=== PATIENT | male | born 2005 | race Two or more races ===

== ENCOUNTER 2025-02-24 16:14 | Inpatient (IN) | payer OTHER ==
[~2025-02-24] VITALS: Ht 162.6 cm; Wt 65.1 kg
--- NOTE | 2025-02-24 16:42 | ED.PDOC ---
General HPI Comments HPI: This is a 20 year old male presenting to the ED with chief complaint of groin pain. Patient reports that he has been experiencing left sided groin pain between his left scrotum and thigh for the past 3 days. Patient relays that he now feels a lump to the point of pain. Patient states he is sexually active, but has no history of STI's. Patient notes that he currently has an undescended left testicle that has been evaluated before, but no treatment has been performed for it. Patient denies any penile discharge, testicular pain, dysuria, hematuria, flank pain, fever, or chills. Initial Vitals BP: 131/81 HR: 100 RR: 16 O2: 98% Temp: 99.3F Past Medical History: One undescended testicle Past Surgical History: Denies Social History: Denies ETOH, smoking, and drug use. Medications: None Allergies: NKDA HPI: Poor Historian. REVIEW OF SYSTEMS: CONSTITUTIONAL: Denies acute: fever, diaphoresis, chills, generalized weakness. HEAD: Denies acute: headache, photophobia Eyes: Denies acute: Double vision, vision loss, eye pain, eye discharge. EARS: Denies acute: tinnitus, hearing loss, ear discharge, ear pain, THROAT: Denies acute: sore throat, swelling, difficulty swallowing , pain with swallowing, change in voice. NECK: Denies acute: neck pain, neck swelling, stiff neck. HEART: Denies acute : chest pain, palpitations, LUNGS: Denies acute: SOB, wheezing, cough, hemoptysis ABDOMEN: Denies acute: abdominal pain, Nausea, Vomiting, diarrhea, melena , hematemesis, hematochezia SKIN: Denies acute: rash, redness, lesions, itchiness. EXTREMITIES: Denies acute: calf pain, numbness, tingling, weakness, denies pain in extremity. Denies acute: Low back pain. Neuro: Denies acute: focal neurological deficit, motor or sensory focal neurological deficit, tremors, seizure like activity, confusion, dizziness, change in mental status, loss of bowel or bladder function, cauda equina like symptoms. : Denies acute: dysuria, hematuria, flank pain, increase in urinary frequency. PSYCH: Denies acute: hallucination, suicidal ideation, homicidal ideation. PHYSICAL EXAM: General: ----mild----acute distress, awake and alert. Head: normocephalic, atraumatic. Neck: supple, trachea is midline, no swelling. Throat: Normal phonation. Eyes:, no erythema, no purulent discharge, no proptosis, no icterus. Heart: regular rate, regular rhythm, no significant murmur appreciated. Lungs: no apparent respiratory distress, Able to speak in full sentences. No wheezing, no rhonchi, no crackles. No stridors Clear to auscultation bilaterally. Abdomen: non tender to palpation, non distended, soft, no guarding, no rebound, + bowel sounds. Neuro: Awake, Alert, oriented to name, self, situation, follows commands GCS=15. Speech is normal. Skin: no petechia, no purpura, no cyanosis, non-pale, not jaundice. Lower extremities: --no - Pitting edema no deformity, no focal swelling, no calf TTP. Makes eye contact. moves all four extremities. Face: no apparent facial droop. Ambulating in the ED independently. : Scrotum is normal appearance. One testicle present in the scrotal sac. Testicle is nontender to palpation. Patient points specifically to his left groin area where his undescended testicle resides. The area is inflamed and swollen and tender to palpation. Otherwise Normal-appearing external male genitalia, circumcised. ED COURSE: DISCLAIMER: This medical document was created using an electronic medical record system with voice recognition software and computerized dictation system. Although this document has been carefully reviewed, there might still be some phonetic and typographical errors. Occasional wrong-word or "sound-alike" substitutions may have occurred due to the inherent limitations of voice recognition software. These areas are purely typographical due to imperfections of the software programs and do not reflect any compromise in the patient's medical care. Please read the chart carefully and recognize, using context, where these substitutions have occurred. Chief Complaint: Testicle Pain Time Seen by MD: 16:37 Reviewed notes: Medications, Allergies Allergies: Coded Allergies: NO KNOWN ALLERGIES (Unverified , 02/24/25) Information Source: Patient Mode of Arrival: Ambulatory Was a procedure done? Was a procedure done?: No Differential Diagnosis Kidney stone (Female): N/A Penile/Scrotal: Epidiymitis, Foreign Body, Prostatitis, STD, UTI, Phimosis, Hydrocele, Testicular Torsion, Urolithiasis Urinary Problem (Male): Plelonephritis, Urethritis, Other (Neoplasm/abscess) X-Ray, Labs, Meds, VS Vital Signs Date Time Temp Pulse Resp B/P (MAP) Pulse Ox O2 Delivery O2 Flow Rate FiO2 02/24/25 16:15 99.3 100 16 131/81 98 99.3 Lab Test 02/24/25 16:41 02/24/25 16:35 Range/Units White Blood Count 14.5 H 4.4-10.8 10^3/uL Red Blood Count 5.27 4.5-5.90 10^6/uL Hemoglobin 14.7 13.5-17.5 g/dL Hematocrit 42.7 41.0-53.0 % Mean Corpuscular Volume 81.1 80.0-100.0 fL Mean Corpuscular Hemoglobin 27.9 L 28.0-32.0 pg Mean Corpuscular Hemoglobin Concent 34.5 32.0-36.0 g/dL Red Cell Distribution Width 13.5 11.8-14.3 % Platelet Count 244 140-450 10^3/uL Mean Platelet Volume 7.3 6.9-10.8 fL Neutrophils (%) (Auto) 75.2 37.0-80.0 % Lymphocytes (%) (Auto) 15.5 10.0-50.0 % Monocytes (%) (Auto) 8.4 0.0-12.0 % Eosinophils (%) (Auto) 0.7 0.0-7.0 % Basophils (%) (Auto) 0.2 0.0-2.0 % Neutrophils # (Auto) 10.9 H 1.6-8.6 10 ^3/uL Lymphocytes # (Auto) 2.2 0.4-5.4 10 ^3/uL Monocytes # (Auto) 1.2 0-1.3 10 ^3/uL Eosinophils # (Auto) 0.1 0-0.8 10 ^3/uL Basophils # (Auto) 0 0-0.2 10 ^3/uL Nucleated Red Blood Cells 0.0 % Sodium Level 142 136-145 mmol/L Potassium Level 3.6 3.5-5.1 mmol/L Chloride Level 104 98-107 mmol/L Carbon Dioxide Level 27 20-31 mmol/L Anion Gap 11 5-15 Blood Urea Nitrogen 12 9-23 mg/dL Creatinine 0.92 0.700-1.30 mg/dL Glomerular Filtration Rate Calc 122 >90 mL/min BUN/Creatinine Ratio 13.0 10.0-20.0 Serum Glucose 91 74-106 mg/dL Lactic Acid Level 0.9 0.4-2.0 mmol/L Calcium Level 10.1 8.7-10.4 mg/dL Urine Color Yellow Yellow Urine Clarity Clear Clear Urine pH 6.0 5.0-9.0 Urine Specific [place] 1.034 1.001-1.035 Urine Protein Negative Negative Urine Ketones Negative Negative Urine Blood Negative Negative /uL Urine Nitrite Negative Negative Urine Bilirubin Negative Negative Urine Urobilinogen Normal Negative mg/dL Urine Leukocyte Esterase Negative Negative /uL Urine RBC 2 0 - 3 /hpf Urine Microscopic WBC < 1 0-3 /HPF Urine Squamous Epithelial Cells Few <5 /hpf Urine Bacteria None seen None Seen /hpf Urine Glucose Normal Normal mg/dL Chlamydia trachomatis (SALLY) Pending Neisseria gonorrhoeae (SALLY) Pending Current Medications Medications (Trade) Dose Ordered Sig/Franny Route Start Time Stop Time Status Last Admin Ceftriaxone Sodium 50 ml @ 100 mls/hr ONCE ONCE IV 02/24/25 16:45 02/24/25 17:14 DC 02/24/25 16:49 Sodium Chloride 1,000 ml @ 1,000 mls/hr Q1H ONCE IV 02/24/25 17:00 02/24/25 17:59 NV 02/24/25 16:50 [place] [address] Ph: [phone] DIAGNOSTIC IMAGING Diagnostic Imaging Report : [id number] Signed PATIENT: MILES ENGLISH ACCT: [id number] UNIT: [id number] : 2005 LOC: ER ROOM / BED: / AGE / SEX: 20 / M ADM STATUS: REG ER SERVICE 1617 ORDERING PHYSICIAN: NICK TORRES DO PROCEDURE(s): TESUS - TESTICULAR ULTRASOUND REASON: pain ORDER NUMBER(s): [id number], ACCESSION NUMBER(s): [id number] ULTRASOUND OF SCROTUM AND CONTENTS. INDICATION: pain COMPARISON: None TECHNIQUE: Multiple real-time grayscale sonographic and color and duplex Doppler images of the scrotum and its contents were obtained. FINDINGS: RIGHT TESTICLE: Measures 5 X 2.3 X 3.4 cm. RIGHT EPIDIDYMIS MEASURES 11.3 MM LEFT TESTICLE: Measures NOT VISUALIZED IN THE SCROTUM. Both testicles demonstrate homogeneous echotexture without evidence of focal lesions. The right epididymal head measures 11.3 cm. The left epididymal head NOT VISUALIZED In the left inguinal area is a 2.6 x 1 x 1.6 cm hypoechoic mass lesion may represent undescended testes. IMPRESSION: 1. Right testicle appears normal. 2. No testicle noted in the left scrotum. 3. 2.6 x 1 x 1.6 cm oval hypoechoic mass in the inguinal region with some vascularity. Patient reports history of undescended testes on the left. HS:Y ATED BY: JAMES ADORNO Jr., DO DICTATED DATE/TIME: 02/24/251746 SIGNED BY: JAMES ADORNO Jr., SIGNED DATE/TIME: 02/24/251746 CC: Time of 1ST Reevaluation: 17:36 Reevaluation 1ST: Unchanged Patient Education/Counseling: Diagnosis, Treatment Family Education/Counseling: No Family Present Comments MDM: patient presented with the above HPI.-testicular/left groin pain/mass-----workup was initiated. patient was found with the above mentioned diagnosis. the following medications were ordered: please refer to order lists of meds and tests obtained by myself Dr. Torres. Patient ED course and VS have been stabilized. Patient has been reassessed in the ED and remained in a stable condition. Pertinent incidental findings were discussed with the patient and/or family. Patient/family voices understanding and is agreeable with plan. Patient has been observed in the ED adequate length of time to insure improvement/stability. Escalation of care considered: Consideration of escalation to observation or admission Patient was given fluids and antibiotics. The care of this patient was signed out to my colleague Dr. Atkinson. Still pending CT scan report. I anticipate that the patient will be admitted for further evaluation and treatment and neurological consultation All the reports of any imaging studies that were ordered by myself were reviewed by myself. Departure 1 Departure Time of Disposition: 18:23 Impression: Primary Impression: Left groin mass Additional Impression: Undescended left testicle Disposition: ADMITTED INPATIENT Admit to: [facility] Condition: Guarded Discharged With: Self Critical Care Note Critical Care Time?: Yes (45 min-critical care time only) I personally scribed for NICK TORRES DO ([email or web address]) on 02/24/25 at 16:42. Electronically submitted by Srinivasan De La Cruz ([email or web address]). I personally scribed for NICK TORRES DO ([email or web address]) on 02/24/25 at 16:42. Electronically submitted by Srinivasan De La Cruz ([email or web address]). NICK TORRES DO Feb 24, 2025 16:42
[2025-02-24] MEDS: cefTRIAXone 1GM/50ML D5W 50 ML IV ONE (16:49)
[2025-02-24 16:50] LABS: Urine Protein, UAD Negative (Negative)
[2025-02-24] MEDS: SODIUM CHLORIDE 0.9% 1,000 ML IV ONE (16:50)
[2025-02-24 17:15] LABS: Hematocrit 42.7 % (41.0-53.0); Hemoglobin 14.7 g/dL (13.5-17.5); Mean Corpuscular Hemoglobin 27.9 pg (28.0-32.0); Mean Corpuscular Volume 81.1 fL (80.0-100.0); Nucleated Red Blood Cells % 0.0 %
[2025-02-24] MEDS: IOHEXOL 300 MG/ML 100ML BOTTLE IJ ONE (17:21)
[2025-02-24 17:22] LABS: Chloride 104 mmol/L (98-107); Potassium 3.6 mmol/L (3.5-5.1); Sodium 142 mmol/L (136-145)
[2025-02-24 17:23] LABS: Anion Gap 11 (5-15); Calcium 10.1 mg/dL (8.7-10.4); Carbon Dioxide 27 mmol/L (20-31)
[2025-02-24 17:28] LABS: BUN/Creatinine Ratio 13.0 (10.0-20.0); Blood Urea Nitrogen 12 mg/dL (9-23); Glucose 91 mg/dL (74-106)
--- NOTE | 2025-02-24 17:49 | DVH ---
ULTRASOUND OF SCROTUM AND CONTENTS. INDICATION: pain COMPARISON: None TECHNIQUE: Multiple real-time grayscale sonographic and color and duplex Doppler images of the scrotu m and its contents were obtained. FINDINGS: RIGHT TESTICLE: Measures 5 X 2.3 X 3.4 cm. RIGHT EPIDIDYMIS MEASURES 11.3 MM LEFT TESTICLE: Measures NOT VISUALIZED IN THE SCROTUM. Both testicles demonstrate homogeneous echotexture without evidence of focal lesions. The right epididymal head measures 11.3 cm. The left epididymal head NOT VISUALIZED In the left inguinal area is a 2.6 x 1 x 1.6 cm hypoechoic mass lesion may represent undescended test es. IMPRESSION: 1. Right testicle appears normal. 2. No testicle noted in the left scrotum. 3. 2.6 x 1 x 1.6 cm oval hypoechoic mass in the inguinal region with some vascularity. Patient repor ts history of undescended testes on the left. HS:Y
--- NOTE | 2025-02-24 18:22 | DVH ---
Exam: CT CT AB PEL WITH IV CON ONLY History: L groin pain, h/o undescended testicle on left. Comparison Study: None Contrast: Type of contrast: Omnipaque 300 Contrast injected: 80 mL Contrast wasted: 0 TECHNIQUE: A digital nitrator operator image was obtained. During the uneventful, intravenous administration of c ontrast material, multislice data acquisition was obtained through the abdomen and pelvis. The data s et was subsequently reconstructed into axial images. Images were reviewed on a work station using a c ombination of axial and multiplanar using a variety of window levels and settings. Radiation Dose Information: CT Dose: CTDI volume is 5.39 mGy. Dose-length product is 292.01 mGy*cm FINDINGS: Lung Bases: No acute or significant lung base finding. Normal heart size. No pleural or pericardial effusion. Liver: The liver is normal in size. No focal lesions. Normal hepatic vascular enhancement. Gallbladder and Biliary Tree: Unremarkable Spleen: Unremarkable Pancreas: The pancreas is normal in appearance without focal lesions or abnormal enhancement. Adrenal Glands: Unremarkable Kidneys: Kidneys demonstrate normal symmetric enhancement without focal lesions, calculi or hydroneph rosis. Bladder: Unremarkable Bowel: The stomach is grossly normal in appearance. Small bowel and colon are normal in caliber and d istribution. The appendix is not visualized; however, no secondary findings of acute appendicitis eula ntified. Ascites: Absent Lymphadenopathy: No mesenteric, retroperitoneal or periportal lymphadenopathy. Abdominal Wall and Mesentery: Unremarkable. Vasculature: The visualized abdominal aorta is normal in size and caliber. Abdominal and pelvic vess els demonstrate normal enhancement. Pelvic Organs: 2.5 x 1.6 cm left inguinal mass likely the undescended testes. Musculoskeletal: No aggressive focal bony lesions, acute fractures or dislocation. Soft tissues: Unremarkable. IMPRESSION: 1. No findings of bowel obstruction 2. No cholelithiasis 3. No nephrolithiasis or hydronephrosis HS:Y All CT scans at this medical facility are performed using dose modulation techniques as appropriate t o a performed exam including the following: Automated exposure control was utilized; adjustment of th e MA and/or KV according to patient size; and use of iterative reconstruction technique.
[2025-02-24 20:18] VITALS: PULSE 71; RESP 20; O2SAT 96
--- NOTE | 2025-02-24 20:26 | DVHINCON2 ---
Date of service: Feb 24, 2025 Referring Physician ER MD Reason for Consultation left undescended testicle History of Present Illness History Source: Patient, MD Notes Exam Limitations: No limitations HPI [age] male with known hx of undescended left testicle. c/o inguinal pain x 3 days. no voiding concerns. Sexually active no STD. afebrile. Past Medical History Renal/: Other (undescended testicle) Alocohol: Occassional Review of Systems Genitourinary: Pain H&P Exam Vital Signs Vital Signs Date Time Temp Pulse Resp B/P (MAP) Pulse Ox O2 Delivery O2 Flow Rate FiO2 02/24/25 16:15 99.3 100 16 131/81 98 99.3 General Appeara: Well developed, Well nourished, Normal Appearance Neuro/Mental St: Alert, Oriented Appearance: Appropriate appearance, Appropriate insight Eye contact/ Speech: Cooperative, Good eye contact, Normal speech Skin Exam: Normal inspection, Normal color, Warm/dry Labs/Xrays [place] [address] Ph: [phone] DIAGNOSTIC IMAGING Diagnostic Imaging Report : [id number] Signed PATIENT: MILES ENGLISH ACCT: [id number] UNIT: [id number] : 2005 LOC: ER ROOM / BED: / AGE / SEX: 20 / M ADM STATUS: REG ER SERVICE 36 ORDERING PHYSICIAN: NICK TORRES DO PROCEDURE(s): ABPLIV - CT AB PEL WITH IV CON ONLY REASON: L groin pain, h/o undescended testicle on left. ORDER NUMBER(s): [id number], ACCESSION NUMBER(s): [id number] Exam: CT CT AB PEL WITH IV CON ONLY History: L groin pain, h/o undescended testicle on left. Comparison Study: None Contrast: Type of contrast: Omnipaque 300 Contrast injected: 80 mL Contrast wasted: 0 TECHNIQUE: A digital brace maker image was obtained. During the uneventful, intravenous administration of contrast material, multislice data acquisition was obtained through the abdomen and pelvis. The data set was subsequently reconstructed into axial images. Images were reviewed on a work station using a combination of axial and multiplanar using a variety of window levels and settings. Radiation Dose Information: CT Dose: CTDI volume is 5.39 mGy. Dose-length product is 292.01 mGy*cm FINDINGS: Lung Bases: No acute or significant lung base finding. Normal heart size. No pleural or pericardial effusion. Liver: The liver is normal in size. No focal lesions. Normal hepatic vascular enhancement. Gallbladder and Biliary Tree: Unremarkable Spleen: Unremarkable Pancreas: The pancreas is normal in appearance without focal lesions or abnormal enhancement. Adrenal Glands: Unremarkable Kidneys: Kidneys demonstrate normal symmetric enhancement without focal lesions, calculi or hydronephrosis. Bladder: Unremarkable Bowel: The stomach is grossly normal in appearance. Small bowel and colon are normal in caliber and distribution. The appendix is not visualized; however, no secondary findings of acute appendicitis identified. Ascites: Absent Lymphadenopathy: No mesenteric, retroperitoneal or periportal lymphadenopathy. Abdominal Wall and Mesentery: Unremarkable. Vasculature: The visualized abdominal aorta is normal in size and caliber. Abdominal and pelvic vessels demonstrate normal enhancement. Pelvic Organs: 2.5 x 1.6 cm left inguinal mass likely the undescended testes. Musculoskeletal: No aggressive focal bony lesions, acute fractures or dislocation. Soft tissues: Unremarkable. IMPRESSION: 1. No findings of bowel obstruction 2. No cholelithiasis 3. No nephrolithiasis or hydronephrosis HS:Y All CT scans at this medical facility are performed using dose modulation techniques as appropriate to a performed exam including the following: Automated exposure control was utilized; adjustment of the MA and/or KV according to patient size; and use of iterative reconstruction technique. ATED BY: JAMES ADORNO Jr., DO DICTATED DATE/TIME: 02/24/251819 SIGNED BY: JAMES ADORNO Jr., SIGNED DATE/TIME: 02/24/251819 CC: [place] [address] Ph: [phone] DIAGNOSTIC IMAGING Diagnostic Imaging Report : [id number] Signed PATIENT: MILES ENGLISH ACCT: [id number] UNIT: [id number] : 2005 LOC: ER ROOM / BED: / AGE / SEX: 20 / M ADM STATUS: REG ER SERVICE 1637 ORDERING PHYSICIAN: NICK TORRES DO PROCEDURE(s): ABPLIV - CT AB PEL WITH IV CON ONLY REASON: L groin pain, h/o undescended testicle on left. ORDER NUMBER(s): [id number], ACCESSION NUMBER(s): [id number] Exam: CT CT AB PEL WITH IV CON ONLY History: L groin pain, h/o undescended testicle on left. Comparison Study: None Contrast: Type of contrast: Omnipaque 300 Contrast injected: 80 mL Contrast wasted: 0 TECHNIQUE: A digital brace maker image was obtained. During the uneventful, intravenous administration of contrast material, multislice data acquisition was obtained through the abdomen and pelvis. The data set was subsequently reconstructed into axial images. Images were reviewed on a work station using a combination of axial and multiplanar using a variety of window levels and settings. Radiation Dose Information: CT Dose: CTDI volume is 5.39 mGy. Dose-length product is 292.01 mGy*cm FINDINGS: Lung Bases: No acute or significant lung base finding. Normal heart size. No pleural or pericardial effusion. Liver: The liver is normal in size. No focal lesions. Normal hepatic vascular enhancement. Gallbladder and Biliary Tree: Unremarkable Spleen: Unremarkable Pancreas: The pancreas is normal in appearance without focal lesions or abnormal enhancement. Adrenal Glands: Unremarkable Kidneys: Kidneys demonstrate normal symmetric enhancement without focal lesions, calculi or hydronephrosis. Bladder: Unremarkable Bowel: The stomach is grossly normal in appearance. Small bowel and colon are normal in caliber and distribution. The appendix is not visualized; however, no secondary findings of acute appendicitis identified. Ascites: Absent Lymphadenopathy: No mesenteric, retroperitoneal or periportal lymphadenopathy. Abdominal Wall and Mesentery: Unremarkable. Vasculature: The visualized abdominal aorta is normal in size and caliber. Abdominal and pelvic vessels demonstrate normal enhancement. Pelvic Organs: 2.5 x 1.6 cm left inguinal mass likely the undescended testes. Musculoskeletal: No aggressive focal bony lesions, acute fractures or dislocation. Soft tissues: Unremarkable. IMPRESSION: 1. No findings of bowel obstruction 2. No cholelithiasis 3. No nephrolithiasis or hydronephrosis HS:Y All CT scans at this medical facility are performed using dose modulation techniques as appropriate to a performed exam including the following: Automated exposure control was utilized; adjustment of the MA and/or KV according to patient size; and use of iterative reconstruction technique. ATED BY: JAMES DAORNO Jr., DO DICTATED DATE/TIME: 02/24/251819 SIGNED BY: JAMES ADORNO Jr., SIGNED DATE/TIME: 02/24/251819 CC: Labs Test 02/24/25 16:41 02/24/25 16:35 Range/Units White Blood Count 14.5 H 4.4-10.8 10^3/uL Red Blood Count 5.27 4.5-5.90 10^6/uL Hemoglobin 14.7 13.5-17.5 g/dL Hematocrit 42.7 41.0-53.0 % Mean Corpuscular Volume 81.1 80.0-100.0 fL Mean Corpuscular Hemoglobin 27.9 L 28.0-32.0 pg Mean Corpuscular Hemoglobin Concent 34.5 32.0-36.0 g/dL Red Cell Distribution Width 13.5 11.8-14.3 % Platelet Count 244 140-450 10^3/uL Mean Platelet Volume 7.3 6.9-10.8 fL Neutrophils (%) (Auto) 75.2 37.0-80.0 % Lymphocytes (%) (Auto) 15.5 10.0-50.0 % Monocytes (%) (Auto) 8.4 0.0-12.0 % Eosinophils (%) (Auto) 0.7 0.0-7.0 % Basophils (%) (Auto) 0.2 0.0-2.0 % Neutrophils # (Auto) 10.9 H 1.6-8.6 10 ^3/uL Lymphocytes # (Auto) 2.2 0.4-5.4 10 ^3/uL Monocytes # (Auto) 1.2 0-1.3 10 ^3/uL Eosinophils # (Auto) 0.1 0-0.8 10 ^3/uL Basophils # (Auto) 0 0-0.2 10 ^3/uL Nucleated Red Blood Cells 0.0 % Sodium Level 142 136-145 mmol/L Potassium Level 3.6 3.5-5.1 mmol/L Chloride Level 104 98-107 mmol/L Carbon Dioxide Level 27 20-31 mmol/L Anion Gap 11 5-15 Blood Urea Nitrogen 12 9-23 mg/dL Creatinine 0.92 0.700-1.30 mg/dL Glomerular Filtration Rate Calc 122 >90 mL/min BUN/Creatinine Ratio 13.0 10.0-20.0 Serum Glucose 91 74-106 mg/dL Lactic Acid Level 0.9 0.4-2.0 mmol/L Calcium Level 10.1 8.7-10.4 mg/dL Urine Color Yellow Yellow Urine Clarity Clear Clear Urine pH 6.0 5.0-9.0 Urine Specific [place] 1.034 1.001-1.035 Urine Protein Negative Negative Urine Ketones Negative Negative Urine Blood Negative Negative /uL Urine Nitrite Negative Negative Urine Bilirubin Negative Negative Urine Urobilinogen Normal Negative mg/dL Urine Leukocyte Esterase Negative Negative /uL Urine RBC 2 0 - 3 /hpf Urine Microscopic WBC < 1 0-3 /HPF Urine Squamous Epithelial Cells Few <5 /hpf Urine Bacteria None seen None Seen /hpf Urine Glucose Normal Normal mg/dL Assessment/Plan Problem List: (1) Undescended left testicle Plan conservative management IV abx repeat imaging if condition worsening outpt orchiectomy TBA Plan discussed with: Patient, Other TODD CONNOR NP Feb 24, 2025 20:26
[2025-02-24] MEDS ORDERED: ACETAMINOPHEN 325 MG TAB PO PRN (22:15)
[2025-02-24 22:41] LABS: Triglycerides 61 mg/dL (< 150)
[2025-02-24 22:43] LABS: Cholesterol 145 mg/dL (< 200); HDL Cholesterol 47 mg/dL (40-59)
--- NOTE | 2025-02-24 22:47 | DVHHPRES ---
History of Present Illness Resident Creating Document: JASBIR DE LA TORRE History of Present Illness This is a 20-year-old male with no significant past medical history. Patient reports he has history of left-sided undescended testis. The patient presented to the ED due to left suprapubic/scrotal swelling, erythema and tenderness with minimal movement. Patient states that he started noticing his symptoms two days before coming to the ED. symptoms started to worsen minimally over time and is very tender to palpation and gets worse with inguinal movement. Patient admits being sexually active only once and he states that he uses protection (robin) at that time. Upon admission, testicular ultrasound was performed showing normal right testicle and non left testicle presence in the scrotal sac. There was a 2.6 X one X1.6 cm oval hypoechoic mass in the inguinal region with some vascularity with might represent the undescended testis. CT of the abdomen was performed and was grossly unremarkable as well with no evidence of hernia at that time. Upon my examination, there was swelling of the left sided suprapubic area that extended down at the junction with the testis without compromise in the testis. Bulge was erythematous, swelled and very tender to palpation. CT of the abdomen and pelvis did not show any fluid collection or abscess at this time. We consulted Urology for further assessment. We will admit the patient for further management. Past medical history: Left-sided undescended testis Home medications: None Surgeries: Denies Social history: No alcohol, drugs or smoking Past Surgical History: None Family History: None Smoke: No ALCOHOL: none Drugs: None Lives: with Family Domestic Violence: Neg Review of Systems Constitutional: No: Fever, Chills, Sweats, Weakness, Malaise, Other Eyes: No: Pain, Vision change, Conjunctivae inflammation, Eyelid inflammation, Other, Redness ENT: No: Ear pain, Ear discharge, Nose pain, Nose discharge, Nose congestion, Mouth pain, Mouth swelling, Throat pain, Throat swelling, Other Respiratory: No: Cough, Dry, Shortness of breath, SOB with excertion, Wheezing, Hemoptysis, Pleuritic Pain, Sputum, Wheezing, Other Cardiovascular: No: Chest Pain, Palpitations, Orthopnea, Paroxysmal Noc. Dyspnea, Edema, Lt Headedness, Other Gastrointestinal: No: Nausea, Vomiting, Abdominal Pain, Diarrhea, Constipation, Melena, Hematochezia, Other Genitourinary: No Dysuria, No Frequency, No Incontinence, No Hematuria, No Retention; Other (There is a left-sided suprapubic swelling and erythema very tender to palpation) Musculoskeletal: No: other, neck pain, shoulder pain, arm pain, back pain, hand pain, leg pain, foot pain Skin: No: Rash, Lesions, Jaundice, Bruising, Other Neurological: No: Weakness, Numbness, Incoordination, Change in speech, Confusion, Seizures, Other Allergies: Coded Allergies: NO KNOWN ALLERGIES (Unverified , 02/24/25) Medications Current Medications Medications Dose Ordered Sig/Franny Route Start Time Stop Time Status Last Admin Dose Admin Acetaminophen 650 mg Q6HP PRN PO 02/24/25 22:15 Acetaminophen/ Hydrocodone Bitart 1 tab Q4HP PRN PO 02/24/25 22:15 Exam Vital Signs Vital Signs Date Time Temp Pulse Resp B/P (MAP) Pulse Ox O2 Delivery O2 Flow Rate FiO2 02/24/25 20:52 98.1 84 16 135/71 (92) 99 98.1 02/24/25 20:18 Room Air* 0 21 General Appearance: Alert, Oriented X3, Cooperative, No acute distress HEENT: Atraumatic, PERRLA, EOMI, Mucous membr. moist/pink Respiratory: Clear to auscultation, Normal air movement Cardiovascular: Regular rate, Normal S1, Normal S2, No murmurs Abdominal: Normal bowel sounds, Soft, No tenderness, No hepatospenomegaly, Other (There is a left-sided suprapubic bulge with erythema swelling and tenderness to palpation) Extremities: No clubbing, No cyanosis, No edema, Normal pulses, No tenderness/swelling Skin: No rashes, No breakdown, No significant lesion Neuro: Normal gait, Normal speech, Strength at 5/5 X4 ext, Normal tone, Sensation intact, Cranial nerves 3-12 NL, Reflexes 2+ Psych/Mental Status: Mental status NL, Mood NL Labs/Xrays Labs Test 02/24/25 16:41 02/24/25 16:35 Range/Units White Blood Count 14.5 H 4.4-10.8 10^3/uL Red Blood Count 5.27 4.5-5.90 10^6/uL Hemoglobin 14.7 13.5-17.5 g/dL Hematocrit 42.7 41.0-53.0 % Mean Corpuscular Volume 81.1 80.0-100.0 fL Mean Corpuscular Hemoglobin 27.9 L 28.0-32.0 pg Mean Corpuscular Hemoglobin Concent 34.5 32.0-36.0 g/dL Red Cell Distribution Width 13.5 11.8-14.3 % Platelet Count 244 140-450 10^3/uL Mean Platelet Volume 7.3 6.9-10.8 fL Neutrophils (%) (Auto) 75.2 37.0-80.0 % Lymphocytes (%) (Auto) 15.5 10.0-50.0 % Monocytes (%) (Auto) 8.4 0.0-12.0 % Eosinophils (%) (Auto) 0.7 0.0-7.0 % Basophils (%) (Auto) 0.2 0.0-2.0 % Neutrophils # (Auto) 10.9 H 1.6-8.6 10 ^3/uL Lymphocytes # (Auto) 2.2 0.4-5.4 10 ^3/uL Monocytes # (Auto) 1.2 0-1.3 10 ^3/uL Eosinophils # (Auto) 0.1 0-0.8 10 ^3/uL Basophils # (Auto) 0 0-0.2 10 ^3/uL Nucleated Red Blood Cells 0.0 % Sodium Level 142 136-145 mmol/L Potassium Level 3.6 3.5-5.1 mmol/L Chloride Level 104 98-107 mmol/L Carbon Dioxide Level 27 20-31 mmol/L Anion Gap 11 5-15 Blood Urea Nitrogen 12 9-23 mg/dL Creatinine 0.92 0.700-1.30 mg/dL Glomerular Filtration Rate Calc 122 >90 mL/min BUN/Creatinine Ratio 13.0 10.0-20.0 Serum Glucose 91 74-106 mg/dL Lactic Acid Level 0.9 0.4-2.0 mmol/L Calcium Level 10.1 8.7-10.4 mg/dL Urine Color Yellow Yellow Urine Clarity Clear Clear Urine pH 6.0 5.0-9.0 Urine Specific [place] 1.034 1.001-1.035 Urine Protein Negative Negative Urine Ketones Negative Negative Urine Blood Negative Negative /uL Urine Nitrite Negative Negative Urine Bilirubin Negative Negative Urine Urobilinogen Normal Negative mg/dL Urine Leukocyte Esterase Negative Negative /uL Urine RBC 2 0 - 3 /hpf Urine Microscopic WBC < 1 0-3 /HPF Urine Squamous Epithelial Cells Few <5 /hpf Urine Bacteria None seen None Seen /hpf Urine Glucose Normal Normal mg/dL SEPSIS Sepsis Screen Date sepsis recognized/suspect: Feb 24, 2025 Time Sepsis recognized/suspect: 1614 Recent Procedure: No On Antibiotic Therapy: No Respiratory Rate >20: No Heart Rate >90: Yes Temp<36 C (96.8 F) or >38.3 C: No SBP <90 or MAP <65 mmHG: No New Acute Mental Status Change: No Is the patient on CPAP, BIPAP,: No Physician Orders Testicular Ultrasound (02/24/25 16:17) Chlamydia/Gc Amplification (02/24/25 16:17) Ct Ab Pel With Iv Con Only (02/24/25 16:37) Saline Lock (02/24/25 16:41) Blood Culture (02/24/25 16:48) Npo Except For Medications (02/24/25 18:02) * Urology Consult (02/24/25 18:24) Admit (02/24/25 22:11) Code Status (02/24/25 22:11) Vital Signs .PER UNIT PROTOCOL (02/24/25 22:11) Review Orders With Adm.Md (02/24/25 22:11) Maintain Bed Rest (02/24/25 22:11) Regular Diet (02/25/25 Breakfast) Acetaminophen Tablet (Tylenol Tablet) (02/24/25 22:15) Notify Md Of Changes From Base (02/24/25 22:11) Advance Directive (02/24/25 22:11) Complete Blood Count (02/25/25 04:00) Lipid Panel (02/24/25 22:11) Patient Condition (02/24/25 22:11) Allergies (02/24/25 22:11) Hydrocodone-Acet 5/325mg Tab ([place] 5/32 (02/24/25 22:15) Drug Screen (02/24/25 22:11) Hemoglobin A1c (02/24/25 22:11) Sodium Chloride 0.9% (02/24/25 22:45) Doxycycline 100mg/100ml (Vibramycin) (02/24/25 22:45) Ceftriaxone 1gm/50ml D5w (Rocephin) (02/25/25 10:00) Vital Signs Date Time Temp Pulse Resp B/P (MAP) Pulse Ox O2 Delivery O2 Flow Rate FiO2 02/24/25 20:52 98.1 84 16 135/71 (92) 99 98.1 02/24/25 20:18 71 20 96 Room Air* 0 21 02/24/25 16:15 99.3 100 16 131/81 98 99.3 Laboratory Tests Test 02/24/25 16:41 Lactic Acid Level 0.9 mmol/L (0.4-2.0) White Blood Count 14.5 10^3/uL (4.4-10.8) H Medications Medications Dose Ordered Sig/Franny Route Start Time Stop Time Status Last Admin Dose Admin Ceftriaxone Sodium 50 ml @ 100 mls/hr ONCE ONCE IV 02/24/25 16:45 02/24/25 17:14 DC 02/24/25 16:49 100 MLS/HR Sodium Chloride 1,000 ml @ 1,000 mls/hr Q1H ONCE IV 02/24/25 17:00 02/24/25 17:59 DC 02/24/25 16:50 1,000 MLS/HR Assessment/Plan Assessment/Plan Assessment/plan Left sided suprapubic swelling likely cellulitis, R/O abscess R/O inguinal/femoral hernia Possible STD, R/O N.Gonorrhea/chlamydia Hx of left sided undescended testis R/O lymphadenopathy Plan -testicular ultrasound showed normal appearance of right testicle, new testicular in the left scrotal sac. There was a 2.6 X one X1.6 cm oval hypoechoic mass in the inguinal region with some vascularity which might represent undescended testis -CT scan of the abdomen was grossly unremarkable with no evidence of hernia at this time. No evidence of fluid collection. -start doxycycline -start ceftriaxone -urology consulted -IV fluids at 75 cc/hour -pain medications Goals of care discussed with the patient, father and mother at bedside, FULL CODE Plan discussed with Dr. Jeter Plan discussed with: Patient My Orders Orders - JASBIR DE LA TORRE Procedure Category Date Status Time Admit ADMIT 02/24/25 Transmitted 22:11 Code Status CODE 02/24/25 Transmitted 22:11 Vital Signs MARY 02/24/25 In Process 22:11 Review Orders With MARY 02/24/25 In Process Adm. 22:11 Maintain Bed Rest MARY 02/24/25 In Process 22:11 Regular Diet DIET 02/25/25 Transmitted Breakfast Acetaminophen Tablet PHA 02/24/25 In Process (Tylenol Tablet) 22:15 Notify Of Changes MARY 02/24/25 In Process From Base 22:11 Advance Directive MARY 02/24/25 In Process 22:11 Complete Blood Count LAB 02/25/25 Verified 04:00 Lipid Panel LAB 02/24/25 In Process 22:11 Patient Condition ORDERS 02/24/25 Transmitted 22:11 Allergies MARY 02/24/25 In Process 22:11 Hydrocodone-Acet PHA 02/24/25 In Process 5/325mg Tab ([place] 22:15 Drug Screen LAB 02/24/25 In Process 22:11 Hemoglobin A1c LAB 02/24/25 In Process 22:11 Sodium Chloride 0.9% PHA 02/24/25 Logged 22:45 Doxycycline PHA 02/24/25 Logged 100mg/100ml 22:45 Ceftriaxone 1gm/50ml PHA 02/25/25 Logged D5w (Rocephin) 10:00 Date of Service: Feb 24, 2025 Billing Provider: SETH JETER MD Common Visit Codes: [id number] INP/OBS CARE (HIGH) Secondary Visit Codes: [id number] CARE PLAN 30 MINUTES JASBIR DE LA TORRE RESIDENT Feb 24, 2025 22:47
[2025-02-24 22:50] VITALS: PULSE 71; O2SAT 96
[2025-02-24 23:06] LABS: Amphetamine Screen, Urine Neg (NEGATIVE)
[2025-02-24 23:10] LABS: Barbiturate Scree,Urine Neg (NEGATIVE); Benzodiazephine Screen, Urine Neg (NEGATIVE); Cocaine Screen, Urine Neg (NEGATIVE); Opiate Scree,Urine Neg (NEGATIVE); Phencyclidine Screen, Urine Neg (NEGATIVE)
[2025-02-24 23:11] LABS: Cannabinoid Screen, Urine Neg (NEGATIVE)
[2025-02-25] VITALS (10 sets, daily range): BP systolic 120–160; BP diastolic 68–102; PULSE 60–91; RESP 16–19; TEMP 97.5–99.9; O2SAT 96–99
[2025-02-25] MEDS: SODIUM CHLORIDE 0.9% 1,000 ML IV ONE (00:39)
[2025-02-25] MEDS: DOXYCYCLINE 100MG/100ML 100 ML IV SCH (00:40)
[2025-02-25 06:47] LABS: Hematocrit 39.8 % (41.0-53.0); Hemoglobin 14.0 g/dL (13.5-17.5); Mean Corpuscular Hemoglobin 28.5 pg (28.0-32.0); Mean Corpuscular Volume 81.0 fL (80.0-100.0); Nucleated Red Blood Cells % 0.0 %
[2025-02-25 08:18] LABS: Alanine Aminotransferase 26 U/L (7-40); Alkaline Phosphatase 87 U/L (46-116); Anion Gap 6 (5-15); BUN/Creatinine Ratio 13.6 (10.0-20.0); Blood Urea Nitrogen 12 mg/dL (9-23); Calcium 9.8 mg/dL (8.7-10.4); Carbon Dioxide 28 mmol/L (20-31); Chloride 105 mmol/L (98-107); Glucose 86 mg/dL (74-106); Potassium 4.4 mmol/L (3.5-5.1); Sodium 139 mmol/L (136-145); Total Protein 7.5 g/dL (5.7-8.2)
[2025-02-25 08:19] LABS: Albumin 5.0 g/dL (3.2-4.8); Bilirubin, Total 1.3 mg/dL (0.2-1.0)
[2025-02-25] MEDS: cefTRIAXone 1GM/50ML D5W 50 ML IV SCH (11:25)
--- NOTE | 2025-02-25 13:44 | DVHPN2 ---
Subjective Patient denies any symptoms at this time. Reviewed: Care Plan, H&P, Labs, Medications Changes from previous H/P or p: No Changes General: Per HPI Eyes: No Pain, No Vision change, No Conjunctivae inflammation, No Eyelid inflammation, No Other, No Redness ENT: No Ear pain, No Ear discharge, No Nose pain, No Nose discharge, No Nose congestion, No Mouth pain, No Mouth swelling, No Throat pain, No Throat swelling, No Other Cardiovascular: No Chest Pain, No Palpitations, No Orthopnea, No Paroxysmal Noc. Dyspnea, No Edema, No Lt Headedness, No Other Respiratory: No Cough, No Dry, No Shortness of breath, No SOB with excertion, No Wheezing, No Hemoptysis, No Pleuritic Pain, No Sputum, No Other Gastrointestinal: No Nausea, No Vomiting, No Abdominal Pain, No Diarrhea, No Constipation, No Melena, No Hematochezia, No Other Genitourinary: No Dysuria, No Frequency, No Incontinence, No Hematuria, No Retention; Other (There is a left-sided suprapubic swelling and erythema very tender to palpation) Musculoskeletal: No other, No neck pain, No shoulder pain, No arm pain, No back pain, No hand pain, No leg pain, No foot pain Skin: No Rash, No Lesions, No Jaundice, No Bruising, No Other Objective Vitals Vital Signs Date Time Temp Pulse Resp B/P (MAP) Pulse Ox O2 Delivery O2 Flow Rate FiO2 02/25/25 12:34 97.5 75 16 145/87 (106) 99 97.5 02/25/25 07:30 Room Air* 0 21 Intake/Output Intake and Output 02/25/25 07:00 Intake Total 1550 ml Balance 1550 ml Intake Oral 100 ml IV Total 1450 ml General Appearance: Alert, Oriented X3, Cooperative, No acute distress HEENT: Atraumatic, PERRLA Lungs: Clear to auscultation, Normal air movement Cardiovascular: Normal S1, Normal S2 Musculoskeletal: Normal sensory function, Normal motor function Neuro: Normal gait, Normal speech Skin: Dry, Intact Psych/Mental Status: Mental status NL, Mood NL Medications Current Medications Medications Dose Ordered Sig/Franyn Route Start Time Stop Time Status Last Admin Dose Admin Acetaminophen 650 mg Q6HP PRN PO 02/24/25 22:15 Acetaminophen/ Hydrocodone Bitart 1 tab Q4HP PRN PO 02/24/25 22:15 Doxycycline Hyclate 100 ml @ 50 mls/hr Q12HR IV 02/24/25 22:45 02/25/25 09:33 50 MLS/HR Ceftriaxone Sodium 50 ml @ 100 mls/hr DAILY IV 02/25/25 10:00 02/25/25 11:25 100 MLS/HR Laboratory Results Laboratory Tests 02/25/25 06:20 Chemistry Test 02/24/25 16:41 02/25/25 06:20 Calcium Level 10.1 mg/dL (8.7-10.4) 9.8 mg/dL (8.7-10.4) Albumin 5.0 g/dL (3.2-4.8) H Total Protein 7.5 g/dL (5.7-8.2) Lipid panel Test 02/24/25 16:41 Cholesterol Level 145 mg/dL (< 200) HDL Cholesterol 47 mg/dL (40-59) Triglycerides Level 61 mg/dL (< 150) LFT Test 02/25/25 06:20 Alanine Aminotransferase (ALT) 26 U/L (7-40) Alkaline Phosphatase 87 U/L (46-116) Aspartate Amino Transferase (AST) 20 U/L (13-40) Total Bilirubin 1.3 mg/dL (0.2-1.0) H HgA1c, TSH Test 02/24/25 16:41 Hemoglobin A1c 5.3 % A1C (<5.7) Urinalysis Test 02/24/25 16:35 Urine Color Yellow (Yellow) Urine Clarity Clear (Clear) Urine pH 6.0 (5.0-9.0) Urine Specific [place] 1.034 (1.001-1.035) Urine Protein Negative (Negative) Urine Ketones Negative (Negative) Urine Blood Negative /uL (Negative) Urine Nitrite Negative (Negative) Urine Bilirubin Negative (Negative) Urine Urobilinogen Normal mg/dL (Negative) Urine Leukocyte Esterase Negative /uL (Negative) Urine RBC 2 /hpf (0 - 3) Urine Microscopic WBC < 1 /HPF (0-3) Urine Squamous Epithelial Cells Few /hpf (<5) Urine Bacteria None seen /hpf (None Seen) Urine Glucose Normal mg/dL (Normal) Labs and/or images reviewed: Labs reviewed by me, Image(s) reviewed by me Assessment/Plan Assessment/Plan Impression: -leukocytosis -undescended left testicle -Left sided suprapubic swelling likely cellulitis, R/O abscess -R/O inguinal/femoral hernia -Possible STD, R/O N.Gonorrhea/chlamydia Plan: -urology consultation -continue current antibiotic therapy -pain management Total time spent with patient discussing and formulating plan of care: 35 minutes. This medical document was created using an electronic medical record system with [employer] dictation system. Although this document has been carefully reviewed, there may still be some phonetic and typographical errors. These areas are purely typographical due to imperfections of the software programs, and do not reflect any compromise in the patient's medical care. Plan discussed with: Spouse Date of Service: Feb 25, 2025 Billing Provider: BETINA ELY NP Common Visit Codes: [id number] INP/OBS CARE(HIGH) BETINA ELY NP Feb 25, 2025 13:44
[2025-02-25] MEDS: HYDROcodone-ACET 5/325MG TAB PO PRN (15:37)
[2025-02-25] MEDS: MORPHINE SULFATE INJ 2 MG/ml SYRG IV PRN (17:44)
[2025-02-26] VITALS (7 sets, daily range): BP systolic 123–135; BP diastolic 72–89; PULSE 58–99; RESP 14–17; TEMP 97.2–98.2; O2SAT 96–99
[2025-02-26 01:06] LABS: Chlamydia Trachomatis, NAA Negative (Negative); Neisseria gonorrhoeae, NAA Negative (Negative)
[2025-02-26 07:18] LABS: Hematocrit 42.1 % (41.0-53.0); Hemoglobin 14.7 g/dL (13.5-17.5); Mean Corpuscular Hemoglobin 28.2 pg (28.0-32.0); Mean Corpuscular Volume 80.8 fL (80.0-100.0); Nucleated Red Blood Cells % 0.2 %
[2025-02-26 07:40] LABS: Alanine Aminotransferase 27 U/L (7-40); Alkaline Phosphatase 97 U/L (46-116); Anion Gap 10 (5-15); BUN/Creatinine Ratio 16.3 (10.0-20.0); Blood Urea Nitrogen 14 mg/dL (9-23); Calcium 10.1 mg/dL (8.7-10.4); Carbon Dioxide 29 mmol/L (20-31); Chloride 100 mmol/L (98-107); Glucose 88 mg/dL (74-106); Potassium 4.3 mmol/L (3.5-5.1); Sodium 139 mmol/L (136-145); Total Protein 7.4 g/dL (5.7-8.2)
[2025-02-26 07:41] LABS: Bilirubin, Total 1.1 mg/dL (0.2-1.0)
[2025-02-26 07:47] LABS: Albumin 5.0 g/dL (3.2-4.8)
--- NOTE | 2025-02-26 09:52 | DVHINCON2 ---
Date of service: Feb 26, 2025 Family History: Patient reports no known family medical history. Allergies: Coded Allergies: NO KNOWN ALLERGIES (Unverified , 02/24/25) Current Medications Current Medications Medications (Trade) Dose Ordered Sig/Franny Route PRN Reason Start Time Stop Time Status Last Admin Ceftriaxone Sodium 50 ml @ 100 mls/hr DAILY IV 02/25/25 10:00 02/26/25 08:31 Morphine Sulfate 1 mg Q2HP PRN IV SEVERE PAIN (7-10 PAIN SCALE) 02/25/25 17:15 02/26/25 07:00 Vital Signs Vital Signs Date Time Temp Pulse Resp B/P (MAP) Pulse Ox O2 Delivery O2 Flow Rate FiO2 02/26/25 08:08 72 16 124/88 02/26/25 07:30 99 Room Air* 0 21 02/26/25 05:00 97.9 97.9 Labs/Diagnostic Data Labs Test 02/26/25 06:56 02/24/25 16:41 02/24/25 16:35 Range/Units White Blood Count 12.4 H 4.4-10.8 10^3/uL Red Blood Count 5.20 4.5-5.90 10^6/uL Hemoglobin 14.7 13.5-17.5 g/dL Hematocrit 42.1 41.0-53.0 % Mean Corpuscular Volume 80.8 80.0-100.0 fL Mean Corpuscular Hemoglobin 28.2 28.0-32.0 pg Mean Corpuscular Hemoglobin Concent 34.9 32.0-36.0 g/dL Red Cell Distribution Width 13.1 11.8-14.3 % Platelet Count 253 140-450 10^3/uL Mean Platelet Volume 7.4 6.9-10.8 fL Neutrophils (%) (Auto) 76.3 37.0-80.0 % Lymphocytes (%) (Auto) 12.2 10.0-50.0 % Monocytes (%) (Auto) 9.5 0.0-12.0 % Eosinophils (%) (Auto) 1.7 0.0-7.0 % Basophils (%) (Auto) 0.3 0.0-2.0 % Neutrophils # (Auto) 9.5 H 1.6-8.6 10 ^3/uL Lymphocytes # (Auto) 1.5 0.4-5.4 10 ^3/uL Monocytes # (Auto) 1.2 0-1.3 10 ^3/uL Eosinophils # (Auto) 0.2 0-0.8 10 ^3/uL Basophils # (Auto) 0 0-0.2 10 ^3/uL Nucleated Red Blood Cells 0.2 % Sodium Level 139 136-145 mmol/L Potassium Level 4.3 3.5-5.1 mmol/L Chloride Level 100 98-107 mmol/L Carbon Dioxide Level 29 20-31 mmol/L Anion Gap 10 5-15 Blood Urea Nitrogen 14 9-23 mg/dL Creatinine 0.86 0.700-1.30 mg/dL Glomerular Filtration Rate Calc 127 >90 mL/min BUN/Creatinine Ratio 16.3 10.0-20.0 Serum Glucose 88 74-106 mg/dL Calcium Level 10.1 8.7-10.4 mg/dL Total Bilirubin 1.1 H 0.2-1.0 mg/dL Aspartate Amino Transferase (AST) 22 13-40 U/L Alanine Aminotransferase (ALT) 27 7-40 U/L Alkaline Phosphatase 97 46-116 U/L Lactate Dehydrogenase 136 120-246 U/L Total Protein 7.4 5.7-8.2 g/dL Albumin 5.0 H 3.2-4.8 g/dL Hemoglobin A1c 5.3 <5.7 % A1C Lactic Acid Level 0.9 0.4-2.0 mmol/L Triglycerides Level 61 < 150 mg/dL Cholesterol Level 145 < 200 mg/dL LDL Cholesterol 99 < 100 mg/dL HDL Cholesterol 47 40-59 mg/dL Urine Color Yellow Yellow Urine Clarity Clear Clear Urine pH 6.0 5.0-9.0 Urine Specific [place] 1.034 1.001-1.035 Urine Protein Negative Negative Urine Ketones Negative Negative Urine Blood Negative Negative /uL Urine Nitrite Negative Negative Urine Bilirubin Negative Negative Urine Urobilinogen Normal Negative mg/dL Urine Leukocyte Esterase Negative Negative /uL Urine RBC 2 0 - 3 /hpf Urine Microscopic WBC < 1 0-3 /HPF Urine Squamous Epithelial Cells Few <5 /hpf Urine Bacteria None seen None Seen /hpf Urine Glucose Normal Normal mg/dL Urine Opiates Screen Neg NEGATIVE Urine Fentanyl Screen Neg NEGATIVE Urine Barbiturates Screen Neg NEGATIVE Urine Phencyclidine Screen Neg NEGATIVE Urine Amphetamines Screen Neg NEGATIVE Urine Benzodiazepines Screen Neg NEGATIVE Urine Cocaine Screen Neg NEGATIVE Urine Cannabinoids Screen Neg NEGATIVE Chlamydia trachomatis (SALLY) Negative Negative Neisseria gonorrhoeae (SALLY) Negative Negative Microbiology Date/Time Source Procedure Growth Status 02/24/25 18:02 Blood Blood Culture - Preliminary NO GROWTH AFTER 24 HOURS OF INCUBATION. Resulted Assessment 20 YEAR OLD MALE WITH LEFT GROIN MASS/PAIN AND UNDESCENDED TESTICLE. LEFT INGUINAL TENDER MASS, WILL GET TUMOR MARKERS AND NPO AFTER MN, HE STATES HE WAS TOLD BY "DOCTORS" WHO HAD KNOWN ABOUT HIS UJNDESCENFDED TESTICLE ALL HIS LIFE, NOT TO WORRY ABOUT IT. EXPLAINED TO MOTHER AT BEDSIDE Plan discussed with: Patient, Other SOURAV DOMINGO MD Feb 26, 2025 09:52
[2025-02-26 12:03] LABS: INR 1.03 (0.9-1.15); Partial Thromboplastin Time 29.5 SEC (24.5-34.5); Prothrombin Time 10.9 sec (9.3-11.8)
--- NOTE | 2025-02-26 13:58 | DVHPN2 ---
Subjective Patient denies any symptoms at this time. Reviewed: Care Plan, H&P, Labs, Medications Changes from previous H/P or p: No Changes General: Per HPI Eyes: No Pain, No Vision change, No Conjunctivae inflammation, No Eyelid inflammation, No Other, No Redness ENT: No Ear pain, No Ear discharge, No Nose pain, No Nose discharge, No Nose congestion, No Mouth pain, No Mouth swelling, No Throat pain, No Throat swelling, No Other Cardiovascular: No Chest Pain, No Palpitations, No Orthopnea, No Paroxysmal Noc. Dyspnea, No Edema, No Lt Headedness, No Other Respiratory: No Cough, No Dry, No Shortness of breath, No SOB with excertion, No Wheezing, No Hemoptysis, No Pleuritic Pain, No Sputum, No Other Gastrointestinal: No Nausea, No Vomiting, No Abdominal Pain, No Diarrhea, No Constipation, No Melena, No Hematochezia, No Other Genitourinary: No Dysuria, No Frequency, No Incontinence, No Hematuria, No Retention; Other (There is a left-sided suprapubic swelling and erythema very tender to palpation) Musculoskeletal: No other, No neck pain, No shoulder pain, No arm pain, No back pain, No hand pain, No leg pain, No foot pain Skin: No Rash, No Lesions, No Jaundice, No Bruising, No Other Objective Vitals Vital Signs Date Time Temp Pulse Resp B/P (MAP) Pulse Ox O2 Delivery O2 Flow Rate FiO2 02/26/25 13:00 98.2 77 14 124/80 (95) 98 98.2 02/26/25 07:30 Room Air* 0 21 Intake/Output Intake and Output 02/26/25 07:00 Intake Total 2250 ml Output Total 400 ml Balance 1850 ml Intake Oral 2000 ml IV Total 250 ml Output Urine Total 400 ml # Voids 1 General Appearance: Alert, Oriented X3, Cooperative, No acute distress HEENT: Atraumatic, PERRLA Lungs: Clear to auscultation, Normal air movement Cardiovascular: Normal S1, Normal S2 Genitourinary: No Apparent Abnormalities Musculoskeletal: Normal sensory function, Normal motor function Neuro: Normal gait, Normal speech Skin: Dry, Intact, Wounds, Other (Bleeding noted to left inguinal mass area) Psych/Mental Status: Mental status NL, Mood NL Medications Current Medications Medications Dose Ordered Sig/Franny Route Start Time Stop Time Status Last Admin Dose Admin Acetaminophen 650 mg Q6HP PRN PO 02/24/25 22:15 Acetaminophen/ Hydrocodone Bitart 1 tab Q4HP PRN PO 02/24/25 22:15 02/26/25 11:10 1 TAB Doxycycline Hyclate 100 ml @ 50 mls/hr Q12HR IV 02/24/25 22:45 02/26/25 09:36 50 MLS/HR Ceftriaxone Sodium 50 ml @ 100 mls/hr DAILY IV 02/25/25 10:00 02/26/25 08:31 100 MLS/HR Morphine Sulfate 1 mg Q2HP PRN IV 02/25/25 17:15 02/26/25 07:00 1 MG Laboratory Results Laboratory Tests 02/26/25 06:56 Chemistry Test 02/26/25 06:56 Albumin 5.0 g/dL (3.2-4.8) H Calcium Level 10.1 mg/dL (8.7-10.4) Total Protein 7.4 g/dL (5.7-8.2) Coagulation Test 02/26/25 11:18 Prothrombin Time 10.9 sec (9.3-11.8) Prothrombin Time INR 1.03 (0.9-1.15) Activated Partial Thromboplast Time 29.5 SEC (24.5-34.5) LFT Test 02/26/25 06:56 Alanine Aminotransferase (ALT) 27 U/L (7-40) Alkaline Phosphatase 97 U/L (46-116) Aspartate Amino Transferase (AST) 22 U/L (13-40) Total Bilirubin 1.1 mg/dL (0.2-1.0) H Urinalysis Test 02/24/25 16:35 Urine Color Yellow (Yellow) Urine Clarity Clear (Clear) Urine pH 6.0 (5.0-9.0) Urine Specific [place] 1.034 (1.001-1.035) Urine Protein Negative (Negative) Urine Ketones Negative (Negative) Urine Blood Negative /uL (Negative) Urine Nitrite Negative (Negative) Urine Bilirubin Negative (Negative) Urine Urobilinogen Normal mg/dL (Negative) Urine Leukocyte Esterase Negative /uL (Negative) Urine RBC 2 /hpf (0 - 3) Urine Microscopic WBC < 1 /HPF (0-3) Urine Squamous Epithelial Cells Few /hpf (<5) Urine Bacteria None seen /hpf (None Seen) Urine Glucose Normal mg/dL (Normal) Microbiology Microbiology Date/Time Source Procedure Growth Status 02/24/25 18:02 Blood Blood Culture - Preliminary NO GROWTH AFTER 24 HOURS OF INCUBATION. Resulted Labs and/or images reviewed: Labs reviewed by me, Image(s) reviewed by me Assessment/Plan Assessment/Plan Impression: -leukocytosis -undescended left testicle -Left sided suprapubic swelling likely cellulitis, R/O abscess -R/O inguinal/femoral hernia -Possible STD, R/O N.Gonorrhea/chlamydia -Rule out mass/lymphoma Plan: -Surgical consultation placed. Plans for going to surgery tomorrow -Handy stain pending. LDH WNL. AFP, BHCG pending -urology consultation -continue current antibiotic therapy -pain management Total time spent with patient discussing and formulating plan of care: 35 minutes. This medical document was created using an electronic medical record system with [employer] dictation system. Although this document has been carefully reviewed, there may still be some phonetic and typographical errors. These areas are purely typographical due to imperfections of the software programs, and do not reflect any compromise in the patient's medical care. Plan discussed with: Patient, Other (RN) My Orders Orders - BETINA ELY NP Procedure Category Date Status Time * Surgical Consult CONS 02/25/25 Transmitted Morphine Sulfate PHA 02/25/25 In Process Injection 17:15 Date of Service: Feb 26, 2025 Billing Provider: BETINA ELY NP Common Visit Codes: [id number] INP/OBS CARE(HIGH) BETINA ELY NP Feb 26, 2025 13:58
[2025-02-27 01:00] VITALS: BP 127/78; PULSE 54; RESP 18; TEMP 97.9; O2SAT 98
[2025-02-27 05:00] VITALS: BP 124/69; PULSE 59; RESP 18; TEMP 97.6; O2SAT 99
[2025-02-27 08:52] VITALS: BP 116/58; PULSE 52; RESP 17; TEMP 97.9; O2SAT 100
--- NOTE | 2025-02-27 09:31 | DVHPN2 ---
Subjective Patient has mild left inguinal pain Reviewed: Care Plan, H&P, Labs, Medications Changes from previous H/P or p: No Changes General: Per HPI Eyes: No Pain, No Vision change, No Conjunctivae inflammation, No Eyelid inflammation, No Other, No Redness ENT: No Ear pain, No Ear discharge, No Nose pain, No Nose discharge, No Nose congestion, No Mouth pain, No Mouth swelling, No Throat pain, No Throat swelling, No Other Cardiovascular: No Chest Pain, No Palpitations, No Orthopnea, No Paroxysmal Noc. Dyspnea, No Edema, No Lt Headedness, No Other Respiratory: No Cough, No Dry, No Shortness of breath, No SOB with excertion, No Wheezing, No Hemoptysis, No Pleuritic Pain, No Sputum, No Other Gastrointestinal: No Nausea, No Vomiting, No Abdominal Pain, No Diarrhea, No Constipation, No Melena, No Hematochezia, No Other Genitourinary: No Dysuria, No Frequency, No Incontinence, No Hematuria, No Retention; Other (There is a left-sided suprapubic swelling and erythema very tender to palpation) Musculoskeletal: No other, No neck pain, No shoulder pain, No arm pain, No back pain, No hand pain, No leg pain, No foot pain Skin: No Rash, No Lesions, No Jaundice, No Bruising, No Other Objective Vitals Vital Signs Date Time Temp Pulse Resp B/P (MAP) Pulse Ox O2 Delivery O2 Flow Rate FiO2 02/27/25 08:52 97.9 52 17 116/58 (77) 100 97.9 02/27/25 08:00 Room Air* 0 21 Intake/Output Intake and Output 02/27/25 07:00 Intake Total 950 ml Output Total 200 ml Balance 750 ml Intake Oral 800 ml IV Total 150 ml Output Urine Total 200 ml # Voids 2 General Appearance: Alert, Oriented X3, Cooperative, No acute distress HEENT: Atraumatic, PERRLA Lungs: Clear to auscultation, Normal air movement Cardiovascular: Normal S1, Normal S2 Genitourinary: No Apparent Abnormalities Musculoskeletal: Normal sensory function, Normal motor function Neuro: Normal gait, Normal speech Skin: Dry, Intact, Wounds, Other (Bleeding noted to left inguinal mass area) Psych/Mental Status: Mental status NL, Mood NL Medications Current Medications Medications Dose Ordered Sig/Franny Route Start Time Stop Time Status Last Admin Dose Admin Acetaminophen 650 mg Q6HP PRN PO 02/24/25 22:15 Acetaminophen/ Hydrocodone Bitart 1 tab Q4HP PRN PO 02/24/25 22:15 02/26/25 20:20 1 TAB Doxycycline Hyclate 100 ml @ 50 mls/hr Q12HR IV 02/24/25 22:45 02/26/25 21:16 50 MLS/HR Ceftriaxone Sodium 50 ml @ 100 mls/hr DAILY IV 02/25/25 10:00 02/26/25 08:31 100 MLS/HR Morphine Sulfate 1 mg Q2HP PRN IV 02/25/25 17:15 02/26/25 07:00 1 MG Laboratory Results Laboratory Tests 02/26/25 06:56 Coagulation Test 02/26/25 11:18 Prothrombin Time 10.9 sec (9.3-11.8) Prothrombin Time INR 1.03 (0.9-1.15) Activated Partial Thromboplast Time 29.5 SEC (24.5-34.5) Urinalysis Test 02/24/25 16:35 Urine Color Yellow (Yellow) Urine Clarity Clear (Clear) Urine pH 6.0 (5.0-9.0) Urine Specific [place] 1.034 (1.001-1.035) Urine Protein Negative (Negative) Urine Ketones Negative (Negative) Urine Blood Negative /uL (Negative) Urine Nitrite Negative (Negative) Urine Bilirubin Negative (Negative) Urine Urobilinogen Normal mg/dL (Negative) Urine Leukocyte Esterase Negative /uL (Negative) Urine RBC 2 /hpf (0 - 3) Urine Microscopic WBC < 1 /HPF (0-3) Urine Squamous Epithelial Cells Few /hpf (<5) Urine Bacteria None seen /hpf (None Seen) Urine Glucose Normal mg/dL (Normal) Microbiology Microbiology Date/Time Source Procedure Growth Status 02/24/25 18:02 Blood Blood Culture - Preliminary NO GROWTH AFTER 48 HOURS OF INCUBATION. Resulted Labs and/or images reviewed: Labs reviewed by me, Image(s) reviewed by me Assessment/Plan Assessment/Plan Impression: -leukocytosis -undescended left testicle -Left sided suprapubic swelling likely cellulitis, R/O abscess -R/O inguinal/femoral hernia -Possible STD, R/O N.Gonorrhea/chlamydia -Rule out mass/lymphoma Plan: Events: Discussed plan of care with Dr. Soriano, general surgery, as well as Melissa Ferris, [facility] urology regarding plan of care. Patient is made NPO. Plans for inguinal surgery,? Orchiectomy today. -Handy stain pending. LDH WNL. AFP pending, BHCG negative -urology consultation -continue current antibiotic therapy -pain management Total time spent with patient discussing and formulating plan of care: 35 minutes. This medical document was created using an electronic medical record system with [employer] dictation system. Although this document has been carefully reviewed, there may still be some phonetic and typographical errors. These areas are purely typographical due to imperfections of the software programs, and do not reflect any compromise in the patient's medical care. Plan discussed with: Patient, Other (RN) Date of Service: Feb 27, 2025 Billing Provider: BETINA ELY NP Common Visit Codes: [id number] INP/OBS CARE (HIGH) BETINA ELY NP Feb 27, 2025 09:31
--- NOTE | 2025-02-27 09:44 | DVHPN2 ---
Progress Note - Dictate Date Seen: Feb 27, 2025 Medical Necessity Reason Pt with a Central, PICC or Fol: No Subjective feeling well vital signs Vital Sign Date Time Temp Pulse Resp B/P (MAP) Pulse Ox O2 Delivery O2 Flow Rate FiO2 02/27/25 08:52 97.9 52 17 116/58 (77) 100 97.9 02/27/25 08:00 Room Air* 0 21 Total Intake and Output 02/26/25 02/26/25 02/27/25 15:00 23:00 07:00 Intake Total 150 ml 500 ml 300 ml Output Total 200 ml Balance 150 ml 300 ml 300 ml medications Current Medications Medications Dose Ordered Sig/Franny Route Start Time Stop Time Status Last Admin Dose Admin Acetaminophen 650 mg Q6HP PRN PO 02/24/25 22:15 Acetaminophen/ Hydrocodone Bitart 1 tab Q4HP PRN PO 02/24/25 22:15 02/26/25 20:20 1 TAB Doxycycline Hyclate 100 ml @ 50 mls/hr Q12HR IV 02/24/25 22:45 02/26/25 21:16 50 MLS/HR Ceftriaxone Sodium 50 ml @ 100 mls/hr DAILY IV 02/25/25 10:00 02/26/25 08:31 100 MLS/HR Morphine Sulfate 1 mg Q2HP PRN IV 02/25/25 17:15 02/26/25 07:00 1 MG objective left scrotal/inguinal region with erythema induration and spontaneous purulent drainage consistent with ruptured abscess. Surrounding cellulitis present. afebrile. laboratory and microbiology Laboratory Tests 02/26/25 06:56 Test 02/26/25 06:56 Range/Units Serum Glucose 88 74-106 mg/dL Assessment/Plan continue abx. outpatient orchiectomy TBA Problems(with codes): (1) Undescended left testicle (2) Left groin mass Prognosis good Plan discussed with: Patient, Other Total Time (mins): 20 TODD CONNOR NP Feb 27, 2025 09:44
--- NOTE | 2025-02-27 10:17 | DVHPN2 ---
Progress Note Date Seen: Feb 27, 2025 Medical Necessity Reason Pt with a Central, PICC or Fol: No Objective vital signs Vital Sign Date Time Temp Pulse Resp B/P (MAP) Pulse Ox O2 Delivery O2 Flow Rate FiO2 02/27/25 08:52 97.9 52 17 116/58 (77) 100 97.9 02/27/25 08:00 Room Air* 0 21 Total Intake and Output 02/26/25 02/26/25 02/27/25 15:00 23:00 07:00 Intake Total 150 ml 500 ml 300 ml Output Total 200 ml Balance 150 ml 300 ml 300 ml medications Current Medications Medications Dose Ordered Sig/Franny Route Start Time Stop Time Status Last Admin Dose Admin Acetaminophen 650 mg Q6HP PRN PO 02/24/25 22:15 Acetaminophen/ Hydrocodone Bitart 1 tab Q4HP PRN PO 02/24/25 22:15 02/26/25 20:20 1 TAB Doxycycline Hyclate 100 ml @ 50 mls/hr Q12HR IV 02/24/25 22:45 02/27/25 09:42 50 MLS/HR Ceftriaxone Sodium 50 ml @ 100 mls/hr DAILY IV 02/25/25 10:00 02/27/25 09:41 100 MLS/HR Morphine Sulfate 1 mg Q2HP PRN IV 02/25/25 17:15 02/26/25 07:00 1 MG laboratory and microbiology Laboratory Tests 02/26/25 06:56 Test 02/26/25 06:56 Range/Units Serum Glucose 88 74-106 mg/dL Problem List/Assessment/Plan Problem List/Assessment/Plan LESS DISCOMFORT, SPONTANEOUS DRAINAGE FROM INFECTED SKIN ADJACENT TO UNDESCENDED TESTICLE. EXPLAINED TO PATIENT THE IMPORTANCE TO HAVE TESTICLE REMOVED. UROLOGY PLANNING OUTPATIENT OPERATION. NO INDICATION FOR EMERGENCY GEN. SURGICAL INTERVENTION Plan discussed with: Patient, Other SOURAV DOMINGO MD Feb 27, 2025 10:17
[2025-02-27 12:52] VITALS: BP 115/60; PULSE 59; RESP 18; TEMP 97.7; O2SAT 98
[2025-02-27 16:58] VITALS: BP 136/81; PULSE 94; RESP 17; TEMP 98.9; O2SAT 99
[2025-02-27 21:00] VITALS: BP 121/84; PULSE 91; RESP 18; TEMP 97.6; O2SAT 97
[2025-02-28 01:00] VITALS: BP 122/64; PULSE 83; RESP 17; TEMP 97.6; O2SAT 97
[2025-02-28 05:00] VITALS: BP 116/60; PULSE 61; RESP 17; TEMP 98.2; O2SAT 97
[2025-02-28 09:00] VITALS: BP 116/68; PULSE 54; RESP 19; TEMP 98.1; O2SAT 98
--- NOTE | 2025-02-28 12:40 | DVHPN2 ---
Subjective Patient has mild left inguinal pain Reviewed: Care Plan, H&P, Labs, Medications Changes from previous H/P or p: No Changes General: Per HPI Eyes: No Pain, No Vision change, No Conjunctivae inflammation, No Eyelid inflammation, No Other, No Redness ENT: No Ear pain, No Ear discharge, No Nose pain, No Nose discharge, No Nose congestion, No Mouth pain, No Mouth swelling, No Throat pain, No Throat swelling, No Other Cardiovascular: No Chest Pain, No Palpitations, No Orthopnea, No Paroxysmal Noc. Dyspnea, No Edema, No Lt Headedness, No Other Respiratory: No Cough, No Dry, No Shortness of breath, No SOB with excertion, No Wheezing, No Hemoptysis, No Pleuritic Pain, No Sputum, No Other Gastrointestinal: No Nausea, No Vomiting, No Abdominal Pain, No Diarrhea, No Constipation, No Melena, No Hematochezia, No Other Genitourinary: No Dysuria, No Frequency, No Incontinence, No Hematuria, No Retention; Other (There is a left-sided suprapubic swelling and erythema very tender to palpation) Musculoskeletal: No other, No neck pain, No shoulder pain, No arm pain, No back pain, No hand pain, No leg pain, No foot pain Skin: No Rash, No Lesions, No Jaundice, No Bruising, No Other Objective Vitals Vital Signs Date Time Temp Pulse Resp B/P (MAP) Pulse Ox O2 Delivery O2 Flow Rate FiO2 02/28/25 09:00 98.1 54 19 116/68 (84) 98 98.1 02/28/25 08:15 Room Air* 0 21 Intake/Output Intake and Output 02/28/25 07:00 Intake Total 760 ml Balance 760 ml Intake Oral 610 ml IV Total 150 ml # Voids 3 # Bowel Movements 1 General Appearance: Alert, Oriented X3, Cooperative, No acute distress HEENT: Atraumatic, PERRLA Lungs: Clear to auscultation, Normal air movement Cardiovascular: Normal S1, Normal S2 Genitourinary: No Apparent Abnormalities Musculoskeletal: Normal sensory function, Normal motor function Neuro: Normal gait, Normal speech Skin: Dry, Intact, Wounds, Other (Bleeding noted to left inguinal mass area) Psych/Mental Status: Mental status NL, Mood NL Medications Current Medications Medications Dose Ordered Sig/Franny Route Start Time Stop Time Status Last Admin Dose Admin Acetaminophen 650 mg Q6HP PRN PO 02/24/25 22:15 Acetaminophen/ Hydrocodone Bitart 1 tab Q4HP PRN PO 02/24/25 22:15 02/27/25 19:58 Doxycycline Hyclate 100 ml @ 50 mls/hr Q12HR IV 02/24/25 22:45 02/28/25 09:25 Ceftriaxone Sodium 50 ml @ 100 mls/hr DAILY IV 02/25/25 10:00 02/28/25 08:40 Morphine Sulfate 1 mg Q2HP PRN IV 02/25/25 17:15 02/26/25 07:00 Laboratory Results Laboratory Tests 02/26/25 06:56 Urinalysis Test 02/24/25 16:35 Urine Color Yellow (Yellow) Urine Clarity Clear (Clear) Urine pH 6.0 (5.0-9.0) Urine Specific [place] 1.034 (1.001-1.035) Urine Protein Negative (Negative) Urine Ketones Negative (Negative) Urine Blood Negative /uL (Negative) Urine Nitrite Negative (Negative) Urine Bilirubin Negative (Negative) Urine Urobilinogen Normal mg/dL (Negative) Urine Leukocyte Esterase Negative /uL (Negative) Urine RBC 2 /hpf (0 - 3) Urine Microscopic WBC < 1 /HPF (0-3) Urine Squamous Epithelial Cells Few /hpf (<5) Urine Bacteria None seen /hpf (None Seen) Urine Glucose Normal mg/dL (Normal) Microbiology Microbiology Date/Time Source Procedure Growth Status 02/24/25 18:02 Blood Blood Culture - Preliminary NO GROWTH AFTER 72 HOURS OF INCUBATION. Resulted Labs and/or images reviewed: Labs reviewed by me, Image(s) reviewed by me Assessment/Plan Assessment/Plan Impression: -leukocytosis -undescended left testicle -Left sided suprapubic swelling likely cellulitis, R/O abscess -R/O inguinal/femoral hernia -Possible STD, R/O N.Gonorrhea/chlamydia -Rule out mass/lymphoma Plan: Events: Surgery canceled with plans for following up as outpatient. Attempts will be made to transfer to in-network facility. -Handy stain pending. LDH WNL. AFP normal, BHCG negative -urology consultation -continue current antibiotic therapy -pain management Total time spent with patient discussing and formulating plan of care: 35 minutes. This medical document was created using an electronic medical record system with Dragon computerized dictation system. Although this document has been carefully reviewed, there may still be some phonetic and typographical errors. These areas are purely typographical due to imperfections of the software programs, and do not reflect any compromise in the patient's medical care. Plan discussed with: Patient, Other (RN) My Orders Orders - BETINA ELY NP Procedure Category Date Status Time * Width Stripper CONS 02/27/25 Transmitted Consult * Width Stripper CONS 02/28/25 Transmitted Consult Basic Metabolic Panel LAB 03/01/25 Verified 04:00 Complete Blood Count LAB 03/01/25 Verified 04:00 Date of Service: Feb 28, 2025 Billing Provider: BETINA ELY NP Common Visit Codes: [id number] INP/OBS CARE(HIGH) BETINA ELY NP Feb 28, 2025 12:40
[2025-02-28 13:00] VITALS: BP 148/79; PULSE 76; RESP 18; TEMP 97.9; O2SAT 98
[2025-02-28 17:00] VITALS: BP 126/69; PULSE 73; RESP 17; TEMP 98.6; O2SAT 97
[2025-02-28] MEDS ORDERED: AUG875T PO (17:04)
[2025-02-28] MEDS ORDERED: HYDR-4902 PO (17:05)
--- NOTE | 2025-02-28 17:20 | DVHDS2 ---
Discharge Summary Date of Admission Feb 24, 2025 at 22:11 Date of Discharge: Feb 28, 2025 Admitting Diagnosis Left inguinal cellulitis Labs/Diagnostic Data: Laboratory Results Test 02/26/25 13:03 02/26/25 11:18 02/26/25 06:56 02/24/25 16:41 Tumor Marker Alpha Fetoprotein 3.7 ng/mL (0.0-5.7) Prothrombin Time 10.9 sec (9.3-11.8) Prothrombin Time INR 1.03 (0.9-1.15) Activated Partial Thromboplast Time 29.5 SEC (24.5-34.5) White Blood Count 12.4 10^3/uL (4.4-10.8) Red Blood Count 5.20 10^6/uL (4.5-5.90) Hemoglobin 14.7 g/dL (13.5-17.5) Hematocrit 42.1 % (41.0-53.0) Mean Corpuscular Volume 80.8 fL (80.0-100.0) Mean Corpuscular Hemoglobin 28.2 pg (28.0-32.0) Mean Corpuscular Hemoglobin Concent 34.9 g/dL (32.0-36.0) Red Cell Distribution Width 13.1 % (11.8-14.3) Platelet Count 253 10^3/uL (140-450) Mean Platelet Volume 7.4 fL (6.9-10.8) Neutrophils (%) (Auto) 76.3 % (37.0-80.0) Lymphocytes (%) (Auto) 12.2 % (10.0-50.0) Monocytes (%) (Auto) 9.5 % (0.0-12.0) Eosinophils (%) (Auto) 1.7 % (0.0-7.0) Basophils (%) (Auto) 0.3 % (0.0-2.0) Neutrophils # (Auto) 9.5 10 ^3/uL (1.6-8.6) Lymphocytes # (Auto) 1.5 10 ^3/uL (0.4-5.4) Monocytes # (Auto) 1.2 10 ^3/uL (0-1.3) Eosinophils # (Auto) 0.2 10 ^3/uL (0-0.8) Basophils # (Auto) 0 10 ^3/uL (0-0.2) Nucleated Red Blood Cells 0.2 % Sodium Level 139 mmol/L (136-145) Potassium Level 4.3 mmol/L (3.5-5.1) Chloride Level 100 mmol/L (98-107) Carbon Dioxide Level 29 mmol/L (20-31) Anion Gap 10 (5-15) Blood Urea Nitrogen 14 mg/dL (9-23) Creatinine 0.86 mg/dL (0.700-1.30) Glomerular Filtration Rate Calc 127 mL/min (>90) BUN/Creatinine Ratio 16.3 (10.0-20.0) Serum Glucose 88 mg/dL (74-106) Calcium Level 10.1 mg/dL (8.7-10.4) Total Bilirubin 1.1 mg/dL (0.2-1.0) Aspartate Amino Transferase (AST) 22 U/L (13-40) Alanine Aminotransferase (ALT) 27 U/L (7-40) Alkaline Phosphatase 97 U/L (46-116) Lactate Dehydrogenase 136 U/L (120-246) Total Protein 7.4 g/dL (5.7-8.2) Albumin 5.0 g/dL (3.2-4.8) Beta HCG, Quantitative 0.4 mIU/mL (0-2) Hemoglobin A1c 5.3 % A1C (<5.7) Lactic Acid Level 0.9 mmol/L (0.4-2.0) Triglycerides Level 61 mg/dL (< 150) Cholesterol Level 145 mg/dL (< 200) LDL Cholesterol 99 mg/dL (< 100) HDL Cholesterol 47 mg/dL (40-59) Test 02/24/25 16:35 Urine Color Yellow (Yellow) Urine Clarity Clear (Clear) Urine pH 6.0 (5.0-9.0) Urine Specific [place] 1.034 (1.001-1.035) Urine Protein Negative (Negative) Urine Ketones Negative (Negative) Urine Blood Negative /uL (Negative) Urine Nitrite Negative (Negative) Urine Bilirubin Negative (Negative) Urine Urobilinogen Normal mg/dL (Negative) Urine Leukocyte Esterase Negative /uL (Negative) Urine RBC 2 /hpf (0 - 3) Urine Microscopic WBC < 1 /HPF (0-3) Urine Squamous Epithelial Cells Few /hpf (<5) Urine Bacteria None seen /hpf (None Seen) Urine Glucose Normal mg/dL (Normal) Urine Opiates Screen Neg (NEGATIVE) Urine Fentanyl Screen Neg (NEGATIVE) Urine Barbiturates Screen Neg (NEGATIVE) Urine Phencyclidine Screen Neg (NEGATIVE) Urine Amphetamines Screen Neg (NEGATIVE) Urine Benzodiazepines Screen Neg (NEGATIVE) Urine Cocaine Screen Neg (NEGATIVE) Urine Cannabinoids Screen Neg (NEGATIVE) Chlamydia trachomatis (SALLY) Negative (Negative) Neisseria gonorrhoeae (SALLY) Negative (Negative) Other Laboratory Tests 02/26/25 06:56 Brief Hx & Hospital Course: History of Present Illness This is a 20-year-old male with no significant past medical history. Patient reports he has history of left-sided undescended testis. The patient presented to the ED due to left suprapubic/scrotal swelling, erythema and tenderness with minimal movement. Patient states that he started noticing his symptoms two days before coming to the ED. symptoms started to worsen minimally over time and is very tender to palpation and gets worse with inguinal movement. Patient admits being sexually active only once and he states that he uses protection (robin) at that time. Upon admission, testicular ultrasound was performed showing normal right testicle and non left testicle presence in the scrotal sac. There was a 2.6 X one X1.6 cm oval hypoechoic mass in the inguinal region with some vascularity with might represent the undescended testis. CT of the abdomen was performed and was grossly unremarkable as well with no evidence of hernia at that time. Upon my examination, there was swelling of the left sided suprapubic area that extended down at the junction with the testis without compromise in the testis. Bulge was erythematous, swelled and very tender to palpation. CT of the abdomen and pelvis did not show any fluid collection or abscess at this time. We consulted Urology for further assessment. We will admit the patient for further management. Course of hospitalization: Patient was seen by with General surgery and Urology. Patient was assessed and given his presentation, recommendations are for continue antibiotic therapy with plans for outpatient follow up for possible orchiectomy. During the hospitalization, patient did have drainage noted from the left inguinal abscess. Patient's white blood cell count improved. Attempts were made to transfer to in network facilities, for which total of three different urologists were spoken to regarding possible transfer for urological procedure, at which time he was declined by each neurologist. Patient will be discharged home and follow up with outpatient Urology. He will be continued on antibiotic therapy with Augmentin 875 mg p.o. b.i.d. for additional 10 days. For pain, he will be continued on [place] 5/325 q.8 hours as needed for [id number] pain. Patient is instructed to abstain from heavy exercise while healing. All questions answered. Physical examination General: Alert and Oriented x3. No acute distress. Well-nourished. Eyes: EOMI. Anicteric. HENT: Moist mucous membranes. Lungs: Clear to auscultation bilaterally. No accessory muscle use. Cardiovascular: Regular rate and rhythm. No murmur. No JVD. Abdomen: Soft, non-tender and non-distended. No palpable masses. Extremities: No edema. Non-tender. Skin: No rashes or lesions. Warm. Neurologic: No focal neurological deficits. CN II-XII grossly intact, but not individually tested. Psychiatric: Cooperative. Appropriate mood and affect. Total time spent with patient discussing and formulating plan of care: 35 minutes. This medical document was created using an electronic medical record system with [employer] dictation system. Although this document has been carefully reviewed, there may still be some phonetic and typographical errors. These areas are purely typographical due to imperfections of the software programs, and do not reflect any compromise in the patient's medical care. Consults/Reason for consult Urology: Left inguinal abscess, probably secondary to nondistended left testes Condition at Discharge: Guarded Final Diagnosis/Problems List Left inguinal abscess Secondary diagnosis: -undescended left testicle -Left sided suprapubic swelling likely cellulitis, R/O abscess -R/O inguinal/femoral hernia -Possible STD, R/O N.Gonorrhea/chlamydia -Ruled out mass/lymphoma Discharge Disposition: Home Discharge Instruct/Medications Diet: Regular Activity: Light activity Follow Up/Referral: DC clinic in 1 week Medications: Augmentin 875mg po BID x 10 days [place] 5/325 q8hrs as needed for moderate to severe pain Scheduled Amoxicillin & Pot Clavulanate (Augmentin Tablet), 875 MG PO BID Scheduled PRN Hydrocodone-Acetaminophen (Hydrocodone Bitartrate/AC 5-325 mg), 1 TAB PO Q8HPRN PRN 36 Discharge Statement: "Patient was advised to return to the ER or call 911 if any headaches, dizziness, shortness of breath, chest pain, abdominal pain, bleeding, fevers, or worsening of medical condition. Patient was counseled about treatment plan, medications, possible side effects, patientverbalized understanding. All questions were answered to the best of my ability. This discharge took greater then 30 minutes in planning, reviewing documentation, counseling the patient, and discussing with other team members." ASSESSMENT ASSESSMENT Assessment Left inguinal abscess Date of Service: Feb 28, 2025 Billing Provider: BETINA ELY NP Common Visit Codes: [id number] DISCH DAY >30min BETINA ELY NP Feb 28, 2025 17:20
[2025-02-28 18:11] VITALS: TEMP 37
== END 2025-02-28 19:56 | disposition home or self-care (01) | DRG 603 ==
LOC: ER 16:14 → OVERFLOW 22:11 → CENTRAL 02-25 02:32
PROVIDERS: ADMIT Nurse Practitioner Acute Care; ATTEND Nurse Practitioner Acute Care
DX: L02.214 Cutaneous abscess of groin (principal); A54.9 Gonococcal infection, unspecified; L03.314 Cellulitis of groin; A74.9 Chlamydial infection, unspecified; K41.90 Unilateral femoral hernia, without obstruction or gangrene, not specified as recurrent; A64 Unspecified sexually transmitted disease; Q53.10 Unspecified undescended testicle, unilateral
CPT/HCPCS: 36415; 74177; 76870; 80048; 80053; 80061; 80307; 81001; 82105; 83036; 83605; 83615; 84702; 85025; 85610; 85730; 87040; 96361; 96365; 99291; G0378